=== PATIENT | male | born 1960 | race African-American/Black ===

== ENCOUNTER 2023-11-22 14:53 | Inpatient (IN) | payer BC ==
[2023-11-22 15:34] VITALS: BMI 22.2
[2023-11-22] MEDS ORDERED: hydrOXYzine PAMOATE 25 MG CAPSULE (FP) PO PRN (19:25)
[2023-11-22] MEDS ORDERED: MAGNESIUM HYDROX 2400MG/30ML ORAL SUSPENSION 30 ML CUP PO PRN (19:25)
[2023-11-22] MEDS ORDERED: BENZONATATE 200 MG CAPSULE PO PRN (19:25)
[2023-11-22] MEDS ORDERED: IBUPROFEN 600 MG TABLET (FP) PO PRN (19:25)
[2023-11-22] MEDS ORDERED: guaiFENesin 600 MG TABLET.ER (FP) PO PRN (19:25)
[2023-11-22] MEDS ORDERED: IBUPROFEN 400 MG TABLET (FP) PO PRN (19:25)
[2023-11-22] MEDS ORDERED: POLYETHYLENE GLYCOL (HEALTHYLAX) 3350 17 GM PACKET PO PRN (19:25)
[2023-11-22] MEDS ORDERED: LOPERAMIDE HCL 2 MG CAPSULE PO PRN (19:25)
[2023-11-22] MEDS ORDERED: ACETAMINOPHEN 325 MG TABLET (FP) PO PRN (19:25)
[2023-11-22] MEDS ORDERED: MAG HYDROX/AL HYDROX/SIMETH 30 ML UNIT-DOSE CUP PO PRN (19:25)
[2023-11-22] MEDS: MELATONIN 5 MG TABLETS PO SCH (21:17)
[2023-11-22] MEDS: THIAMINE HCL 100 MG TABLET (FP) PO SCH (21:17)
[2023-11-22] MEDS ORDERED: ASPIRIN 325 MG ENTERIC COATED TABLET (FP) PO SCH (22:00)
[2023-11-22] MEDS: ASPIRIN 325 MG ENTERIC COATED TABLET (FP) PO SCH (23:23)
[2023-11-22] MEDS ORDERED: TUBERCULIN PPD 5 TU/0.1ML SYRINGE (IN PATIENT USE ONLY) ID ONE (23:26)
[2023-11-23] MEDS ORDERED: TUBERCULIN PPD 5 TU/0.1ML VIAL ID ONE (06:23)
[2023-11-23] MEDS ORDERED: TUBERCULIN PPD 5 TU/0.1ML SYRINGE (IN PATIENT USE ONLY) ID ONE (07:00)
[2023-11-23] MEDS: PRENATAL VITAMINS W/ FOLIC ACID TABLET (FP) PO SCH (10:16)
[2023-11-23] MEDS: ASPIRIN 325 MG ENTERIC COATED TABLET (FP) PO SCH (10:17)
[2023-11-23 11:19] LABS: HEMATOCRIT 43.3 % (35.4-49); MCH 30.4 pg (25.7-33.7); MCHC 32.3 g/dl (32.0-35.9); MEAN PLT VOLUME 10.4 fl (7.5-11.1); PLATELET COUNT 123 10^3/uL (134-434); RDW 14.1 % (11.9-15.9); WHITE BLOOD COUNT 5.8 K/mm3 (4.0-10.0)
[2023-11-23 11:20] LABS: PH,URINE 8.5 (5.0-8.0); URINE APPEARANCE CLEAR; URINE BILIRUBIN NEGATIVE (NEGATIVE); URINE COLOR YELLOW; URINE GLUCOSE (UA) 3+ (NEGATIVE); URINE KETONE NEGATIVE (NEGATIVE); URINE LEUK ESTERASE NEGATIVE (NEGATIVE); URINE NITRITE NEGATIVE (NEGATIVE); URINE PROTEIN NEGATIVE (NEGATIVE)
[2023-11-23 11:35] LABS: CHLORIDE 111 mmol/L (98-107); POTASSIUM 4.5 mmol/L (3.5-5.1); SODIUM 142 mmol/L (136-145)
[2023-11-23 11:41] LABS: CALCIUM 8.7 mg/dL (8.5-10.1)
[2023-11-23 11:43] LABS: ALBUMIN 3.1 g/dl (3.4-5.0); ANION GAP 2 mmol/L (4-13); BLOOD UREA NITROGEN 18.6 mg/dL (7-18); CO2 29 mmol/L (21-32); GLUCOSE,RANDOM 108 mg/dL (74-106)
[2023-11-23 11:45] LABS: SGOT/AST 14 U/L (15-37); SGPT/ALT 20 U/L (13-61)
[2023-11-23 11:46] LABS: BILIRUBIN,TOTAL 0.2 mg/dL (0.2-1)
[2023-11-23 11:48] LABS: ALK PHOS 101 U/L (45-117)
[2023-11-23] MEDS: metFORMIN HCL 500 MG TABLET (FP) PO SCH (13:27)
[2023-11-23] MEDS: INSULIN ASPART SLIDING SCALE (NOVOLOG) 1 VIAL SQ SCH (16:45)
[2023-11-23] MEDS: THIAMINE HCL 100 MG TABLET (FP) PO SCH (21:40)
[2023-11-23] MEDS: MELATONIN 5 MG TABLETS PO SCH (21:40)
[2023-11-23] MEDS: ATORVASTATIN CA 40 MG TABLET (FP) PO SCH (21:40)
[2023-11-24] MEDS: metFORMIN HCL 500 MG TABLET (FP) PO SCH (06:40)
[2023-11-24] MEDS: INSULIN ASPART SLIDING SCALE (NOVOLOG) 1 VIAL SQ SCH ×2 (06:42→16:44)
[2023-11-24] MEDS: PRENATAL VITAMINS W/ FOLIC ACID TABLET (FP) PO SCH (10:04)
[2023-11-24] MEDS: ASPIRIN COATED 81 MG TABLET.EC PO SCH (10:05)
[2023-11-24] MEDS: ATORVASTATIN CA 40 MG TABLET (FP) PO SCH (21:50)
[2023-11-24] MEDS: MELATONIN 5 MG TABLETS PO SCH (21:50)
[2023-11-24] MEDS: DIVALPROEX NA *ER* EXTEND REL 500 MG TABLET.SA (FP) PO SCH (21:50)
[2023-11-24] MEDS: THIAMINE HCL 100 MG TABLET (FP) PO SCH (21:50)
[2023-11-25] MEDS: metFORMIN HCL 500 MG TABLET (FP) PO SCH (06:19)
[2023-11-25] MEDS: INSULIN ASPART SLIDING SCALE (NOVOLOG) 1 VIAL SQ SCH ×2 (06:30→16:29)
[2023-11-25] MEDS: ASPIRIN COATED 81 MG TABLET.EC PO SCH (10:11)
[2023-11-25] MEDS: PRENATAL VITAMINS W/ FOLIC ACID TABLET (FP) PO SCH (10:11)
[2023-11-25] MEDS: THIAMINE HCL 100 MG TABLET (FP) PO SCH (21:54)
[2023-11-25] MEDS: DIVALPROEX NA *ER* EXTEND REL 500 MG TABLET.SA (FP) PO SCH (21:54)
[2023-11-25] MEDS: ATORVASTATIN CA 40 MG TABLET (FP) PO SCH (21:54)
[2023-11-25] MEDS: MELATONIN 5 MG TABLETS PO SCH (21:54)
[2023-11-26] MEDS: metFORMIN HCL 500 MG TABLET (FP) PO SCH (06:39)
[2023-11-26] MEDS: INSULIN ASPART SLIDING SCALE (NOVOLOG) 1 VIAL SQ SCH ×2 (06:40→16:34)
[2023-11-26] MEDS: PRENATAL VITAMINS W/ FOLIC ACID TABLET (FP) PO SCH (10:00)
[2023-11-26] MEDS: ASPIRIN COATED 81 MG TABLET.EC PO SCH (10:00)
[2023-11-26] MEDS: DIVALPROEX NA *ER* EXTEND REL 500 MG TABLET.SA (FP) PO SCH (21:37)
[2023-11-26] MEDS: ATORVASTATIN CA 40 MG TABLET (FP) PO SCH (21:38)
[2023-11-26] MEDS: MELATONIN 5 MG TABLETS PO SCH (21:38)
[2023-11-26] MEDS: THIAMINE HCL 100 MG TABLET (FP) PO SCH (21:38)
[2023-11-27] MEDS: metFORMIN HCL 500 MG TABLET (FP) PO SCH (06:39)
[2023-11-27] MEDS: INSULIN ASPART SLIDING SCALE (NOVOLOG) 1 VIAL SQ SCH ×2 (07:16→16:43)
[2023-11-27] MEDS: ASPIRIN COATED 81 MG TABLET.EC PO SCH (10:06)
[2023-11-27] MEDS: PRENATAL VITAMINS W/ FOLIC ACID TABLET (FP) PO SCH (10:06)
[2023-11-27] MEDS: MELATONIN 5 MG TABLETS PO SCH (21:29)
[2023-11-27] MEDS: DIVALPROEX NA *ER* EXTEND REL 500 MG TABLET.SA (FP) PO SCH (21:29)
[2023-11-27] MEDS: THIAMINE HCL 100 MG TABLET (FP) PO SCH (21:29)
[2023-11-27] MEDS: ATORVASTATIN CA 40 MG TABLET (FP) PO SCH (21:30)
[2023-11-28] MEDS: metFORMIN HCL 500 MG TABLET (FP) PO SCH (06:05)
[2023-11-28] MEDS: INSULIN ASPART SLIDING SCALE (NOVOLOG) 1 VIAL SQ SCH ×2 (06:13→16:42)
[2023-11-28] MEDS: PRENATAL VITAMINS W/ FOLIC ACID TABLET (FP) PO SCH (10:00)
[2023-11-28] MEDS: ASPIRIN COATED 81 MG TABLET.EC PO SCH (10:01)
[2023-11-28] MEDS: DIVALPROEX NA *ER* EXTEND REL 500 MG TABLET.SA (FP) PO SCH (21:38)
[2023-11-28] MEDS: ATORVASTATIN CA 40 MG TABLET (FP) PO SCH (21:39)
[2023-11-28] MEDS: BENZOCAINE/MENTHOL (CHLORASEPTIC ) LOZENGE MM PRN (21:39)
[2023-11-28] MEDS: MELATONIN 5 MG TABLETS PO SCH (21:39)
[2023-11-28] MEDS: THIAMINE HCL 100 MG TABLET (FP) PO SCH (21:39)
[2023-11-29] MEDS: BENZOCAINE/MENTHOL (CHLORASEPTIC ) LOZENGE MM PRN (06:03)
[2023-11-29] MEDS: P-EPHED 60MG/TRIPROLIDI 2.5MG TABLET PO PRN ×3 (06:03→21:38)
[2023-11-29] MEDS: metFORMIN HCL 500 MG TABLET (FP) PO SCH (06:04)
[2023-11-29] MEDS: INSULIN ASPART SLIDING SCALE (NOVOLOG) 1 VIAL SQ SCH ×2 (06:04→17:03)
[2023-11-29] MEDS: PRENATAL VITAMINS W/ FOLIC ACID TABLET (FP) PO SCH (10:12)
[2023-11-29] MEDS: ASPIRIN COATED 81 MG TABLET.EC PO SCH (10:12)
[2023-11-29] MEDS: THIAMINE HCL 100 MG TABLET (FP) PO SCH (21:35)
[2023-11-29] MEDS: ATORVASTATIN CA 40 MG TABLET (FP) PO SCH (21:36)
[2023-11-29] MEDS: DIVALPROEX NA *ER* EXTEND REL 500 MG TABLET.SA (FP) PO SCH (21:36)
[2023-11-29] MEDS: MELATONIN 5 MG TABLETS PO SCH (21:36)
[2023-11-30] MEDS: metFORMIN HCL 500 MG TABLET (FP) PO SCH (06:02)
[2023-11-30] MEDS ORDERED: INSULIN (NOVOLOG) ASPART 100 UNITS/ML 10ML VIAL ONE (06:57)
[2023-11-30] MEDS: INSULIN ASPART SLIDING SCALE (NOVOLOG) 1 VIAL SQ SCH ×2 (07:35→17:30)
[2023-11-30] MEDS: ASPIRIN COATED 81 MG TABLET.EC PO SCH (10:16)
[2023-11-30] MEDS: PRENATAL VITAMINS W/ FOLIC ACID TABLET (FP) PO SCH (10:16)
[2023-11-30] MEDS ORDERED: BENZONATATE 200 MG CAPSULE PO PRN (12:47)
[2023-11-30] MEDS ORDERED: ACETAMINOPHEN 325 MG TABLET (FP) PO PRN (12:48)
[2023-11-30] MEDS: DIVALPROEX NA *ER* EXTEND REL 500 MG TABLET.SA (FP) PO SCH (21:56)
[2023-11-30] MEDS: ATORVASTATIN CA 40 MG TABLET (FP) PO SCH (21:56)
[2023-11-30] MEDS: THIAMINE HCL 100 MG TABLET (FP) PO SCH (21:56)
[2023-11-30] MEDS: MELATONIN 5 MG TABLETS PO SCH (21:57)
[2023-11-30] MEDS: guaiFENesin 600 MG TABLET.ER (FP) PO SCH (21:58)
[2023-12-01] MEDS: metFORMIN HCL 500 MG TABLET (FP) PO SCH (06:13)
[2023-12-01] MEDS: INSULIN ASPART SLIDING SCALE (NOVOLOG) 1 VIAL SQ SCH ×2 (06:42→17:08)
[2023-12-01] MEDS: PRENATAL VITAMINS W/ FOLIC ACID TABLET (FP) PO SCH (09:57)
[2023-12-01] MEDS: guaiFENesin 600 MG TABLET.ER (FP) PO SCH ×2 (09:57→22:02)
[2023-12-01] MEDS: ASPIRIN COATED 81 MG TABLET.EC PO SCH (09:57)
[2023-12-01] MEDS: THIAMINE HCL 100 MG TABLET (FP) PO SCH (22:02)
[2023-12-01] MEDS: ATORVASTATIN CA 40 MG TABLET (FP) PO SCH (22:02)
[2023-12-01] MEDS: MELATONIN 5 MG TABLETS PO SCH (22:02)
[2023-12-01] MEDS: DIVALPROEX NA *ER* EXTEND REL 500 MG TABLET.SA (FP) PO SCH (22:03)
[2023-12-02] MEDS: metFORMIN HCL 500 MG TABLET (FP) PO SCH (06:27)
[2023-12-02] MEDS: INSULIN ASPART SLIDING SCALE (NOVOLOG) 1 VIAL SQ SCH ×2 (07:30→17:12)
[2023-12-02] MEDS: guaiFENesin 600 MG TABLET.ER (FP) PO SCH ×2 (10:34→22:06)
[2023-12-02] MEDS: ASPIRIN COATED 81 MG TABLET.EC PO SCH (10:34)
[2023-12-02] MEDS: PRENATAL VITAMINS W/ FOLIC ACID TABLET (FP) PO SCH (10:34)
[2023-12-02] MEDS ORDERED: INSULIN (LEVEMIR) 100 UNITS/ML UNITS SQ ONE (22:00)
[2023-12-02] MEDS: DIVALPROEX NA *ER* EXTEND REL 500 MG TABLET.SA (FP) PO SCH (22:05)
[2023-12-02] MEDS: THIAMINE HCL 100 MG TABLET (FP) PO SCH (22:06)
[2023-12-02] MEDS: MELATONIN 5 MG TABLETS PO SCH (22:06)
[2023-12-02] MEDS: ATORVASTATIN CA 40 MG TABLET (FP) PO SCH (22:06)
[2023-12-03] MEDS: INSULIN ASPART SLIDING SCALE (NOVOLOG) 1 VIAL SQ SCH ×2 (06:32→07:10)
[2023-12-03] MEDS: metFORMIN HCL 500 MG TABLET (FP) PO SCH (06:33)
[2023-12-03 06:46] VITALS: RESP 18
[2023-12-03 09:36] VITALS: BP 158/89; PULSE 70; TEMP 97.2
[2023-12-03] MEDS: guaiFENesin 600 MG TABLET.ER (FP) PO SCH (09:47)
[2023-12-03] MEDS: ASPIRIN COATED 81 MG TABLET.EC PO SCH (09:47)
[2023-12-03] MEDS: PRENATAL VITAMINS W/ FOLIC ACID TABLET (FP) PO SCH (09:47)
== END 2023-12-03 10:09 | disposition home or self-care (01) | DRG 772 ==
LOC: YASAS 14:53 → Y5N 19:27
PROVIDERS: ADMIT Allergy & Immunology; ATTEND Psychiatry & Neurology Pain Medicine
PROC: HZ42ZZZ Group Counseling for Substance Abuse Treatment, Cognitive-Behavioral (ICD-10-PCS; principal; 2023-11-22)
DX: F10.20 Alcohol dependence, uncomplicated (principal); F14.20 Cocaine dependence, uncomplicated; F12.20 Cannabis dependence, uncomplicated; F20.9 Schizophrenia, unspecified; U07.1 COVID-19; E11.9 Type 2 diabetes mellitus without complications; Z79.84 Long term (current) use of oral hypoglycemic drugs; I11.0 Hypertensive heart disease with heart failure; I50.9 Heart failure, unspecified; Z95.5 Presence of coronary angioplasty implant and graft; Z62.810 Personal history of physical and sexual abuse in childhood; Z63.8 Other specified problems related to primary support group
CPT/HCPCS: 0241U-QW; 36415; 80053; 80307; 81003; 82962; 85027; 86780; 93005; 93010

== ENCOUNTER 2024-02-07 16:04 | Inpatient (IN) | payer BC ==
[2024-02-07 17:17] VITALS: BMI 23.0
[2024-02-07] MEDS ORDERED: POLYETHYLENE GLYCOL (HEALTHYLAX) 3350 17 GM PACKET PO PRN (18:42)
[2024-02-07] MEDS ORDERED: NALOXONE HCL (KLOXXADO) 8 MG SPRAY NS PRN (18:42)
[2024-02-07] MEDS ORDERED: ACETAMINOPHEN 325 MG TABLET (FP) PO PRN (18:42)
[2024-02-07] MEDS ORDERED: ONDANSETRON *ODT* 4 MG TABLET SL PRN (18:42)
[2024-02-07] MEDS ORDERED: BENZOCAINE/MENTHOL (CHLORASEPTIC ) LOZENGE MM PRN (18:42)
[2024-02-07] MEDS ORDERED: NALOXONE HCL 0.4 MG/ML VIAL IM PRN (18:42)
[2024-02-07] MEDS ORDERED: BENZONATATE 200 MG CAPSULE PO PRN (18:42)
[2024-02-07] MEDS ORDERED: MAGNESIUM HYDROX 2400MG/30ML ORAL SUSPENSION 30 ML CUP PO PRN (18:42)
[2024-02-07] MEDS ORDERED: hydrOXYzine PAMOATE 25 MG CAPSULE (FP) PO PRN (18:42)
[2024-02-07] MEDS ORDERED: IBUPROFEN 600 MG TABLET (FP) PO PRN (18:42)
[2024-02-07] MEDS ORDERED: METHOCARBAMOL 500 MG TABLET PO PRN (18:42)
[2024-02-07] MEDS ORDERED: guaiFENesin 600 MG TABLET.ER (FP) PO PRN (18:42)
[2024-02-07] MEDS ORDERED: IBUPROFEN 400 MG TABLET (FP) PO PRN (18:42)
[2024-02-07] MEDS: MAG HYDROX/AL HYDROX/SIMETH 30 ML UNIT-DOSE CUP PO PRN (20:21)
[2024-02-07] MEDS: THIAMINE HCL 100 MG TABLET (FP) PO SCH (22:46)
[2024-02-07] MEDS: MELATONIN 5 MG TABLETS PO SCH (22:46)
[2024-02-07] MEDS: BISMUTH SUBSALICYLATE 524 MG/30 ML PO PRN (23:14)
[2024-02-08] MEDS: metFORMIN HCL 500 MG TABLET (FP) PO SCH (06:21)
[2024-02-08] MEDS: PRENATAL VITAMINS W/ FOLIC ACID TABLET (FP) PO SCH (10:07)
[2024-02-08 11:48] LABS: HEMATOCRIT 43.8 % (35.4-49); HEMOGLOBIN 14.2 GM/dL (11.7-16.9); MCH 30.9 pg (25.7-33.7); MCHC 32.5 g/dl (32.0-35.9); MEAN CELL VOLUME 95.2 fl (80-96); MEAN PLT VOLUME 9.9 fl (7.5-11.1); PLATELET COUNT 148 10^3/uL (134-434); RDW 14.8 % (11.9-15.9); WHITE BLOOD COUNT 7.3 K/mm3 (4.0-10.0)
[2024-02-08 11:53] LABS: CHLORIDE 108 mmol/L (98-107); POTASSIUM 4.4 mmol/L (3.5-5.1); SODIUM 139 mmol/L (136-145)
[2024-02-08 12:03] LABS: CALCIUM 9.2 mg/dL (8.5-10.1); GLUCOSE,RANDOM 91 mg/dL (74-106)
[2024-02-08 12:04] LABS: ALBUMIN 3.2 g/dl (3.4-5.0); ANION GAP 2 mmol/L (4-13); BLOOD UREA NITROGEN 21.1 mg/dL (7-18); CO2 28 mmol/L (21-32); SGOT/AST 11 U/L (15-37); SGPT/ALT 14 U/L (13-61)
[2024-02-08 12:06] LABS: CREATININE 1.1 mg/dL (0.55-1.3); TOT PROT 6.8 g/dl (6.4-8.2)
[2024-02-08 12:07] LABS: ALK PHOS 101 U/L (45-117)
[2024-02-08 12:10] LABS: BILIRUBIN,TOTAL 0.6 mg/dL (0.2-1)
[2024-02-09] MEDS: LOPERAMIDE HCL 2 MG CAPSULE PO PRN (05:27)
[2024-02-09] MEDS: DICYCLOMINE HCL 10 MG CAPSULE PO PRN (05:27)
[2024-02-09] MEDS ORDERED: LORazepam 1 MG TABLET PO PRN (08:45)
[2024-02-09] MEDS: LORazepam 2 MG TABLET PO SCH (10:19)
[2024-02-10] MEDS: DIVALPROEX SODIUM 500 MG TABLET E.C. PO SCH (10:41)
[2024-02-10] MEDS: LACTULOSE 20 GM/30 ML UDC (FOR ORAL USE ONLY) PO SCH (14:55)
[2024-02-11] MEDS: LORazepam 1 MG TABLET PO SCH (05:13)
[2024-02-12] MEDS ORDERED: LORazepam 0.5 MG TABLET PO PRN
[2024-02-12] MEDS: LORazepam 0.5 MG TABLET PO SCH (05:20)
[2024-02-13] MEDS: LORazepam 0.5 MG TABLET PO ONE (05:39)
[2024-02-13 05:58] VITALS: RESP 16
[2024-02-13 09:14] VITALS: BP 126/73; PULSE 80; TEMP 96.9
== END 2024-02-13 12:35 | disposition other institution (70) | DRG 774 ==
LOC: YASAS 16:04 → Y6N 18:51 → Y3N 19:13
PROVIDERS: ADMIT Allergy & Immunology; ATTEND Surgery
PROC: HZ2ZZZZ Detoxification Services for Substance Abuse Treatment (ICD-10-PCS; principal; 2024-02-07)
DX: F10.230 Alcohol dependence with withdrawal, uncomplicated (principal); F14.20 Cocaine dependence, uncomplicated; F12.20 Cannabis dependence, uncomplicated; F17.210 Nicotine dependence, cigarettes, uncomplicated; F20.9 Schizophrenia, unspecified; E72.20 Disorder of urea cycle metabolism, unspecified; I11.0 Hypertensive heart disease with heart failure; I50.9 Heart failure, unspecified; E11.9 Type 2 diabetes mellitus without complications; Z79.84 Long term (current) use of oral hypoglycemic drugs; Z86.11 Personal history of tuberculosis
CPT/HCPCS: 36415; 80053; 80305; 80307; 82140; 82962; 82977; 85027; 86780; 93005; 93010

== ENCOUNTER 2024-02-13 13:20 | Inpatient (IN) | payer BC ==
[2024-02-13] MEDS ORDERED: AMMONIUM LACTATE 12% LOTION 225 GM BOTTLE TP PRN (14:18)
[2024-02-13] MEDS ORDERED: MAGNESIUM HYDROX 2400MG/30ML ORAL SUSPENSION 30 ML CUP PO PRN (14:18)
[2024-02-13] MEDS ORDERED: BENZONATATE 200 MG CAPSULE PO PRN (14:18)
[2024-02-13] MEDS ORDERED: NALOXONE (NYS OPIOID OVERDOSE PROGRAM) 4 MG/0.1 ML SPRAY NS PRN (14:18)
[2024-02-13] MEDS ORDERED: IBUPROFEN 600 MG TABLET (FP) PO PRN (14:18)
[2024-02-13] MEDS ORDERED: hydrOXYzine PAMOATE 25 MG CAPSULE (FP) PO PRN (14:18)
[2024-02-13] MEDS ORDERED: NICOTINE POLACRILEX 4 MG GUM BUC PRN (14:18)
[2024-02-13] MEDS ORDERED: POLYETHYLENE GLYCOL (HEALTHYLAX) 3350 17 GM PACKET PO PRN (14:18)
[2024-02-13] MEDS ORDERED: NICOTINE POLACRILEX 4 MG LOZENGE BC PRN (14:18)
[2024-02-13] MEDS ORDERED: IBUPROFEN 400 MG TABLET (FP) PO PRN (14:18)
[2024-02-13] MEDS ORDERED: ACETAMINOPHEN 325 MG TABLET (FP) PO PRN (14:18)
[2024-02-13] MEDS ORDERED: NALOXONE HCL 0.4 MG/ML VIAL IVPUSH PRN (14:18)
[2024-02-13] MEDS ORDERED: LOPERAMIDE HCL 2 MG CAPSULE PO PRN (14:18)
[2024-02-13] MEDS ORDERED: BENZOCAINE/MENTHOL (CHLORASEPTIC ) LOZENGE MM PRN (14:18)
[2024-02-13] MEDS ORDERED: guaiFENesin 600 MG TABLET.ER (FP) PO PRN (14:18)
[2024-02-13] MEDS: LACTULOSE 20 GM/30 ML UDC (FOR ORAL USE ONLY) PO SCH (15:05)
[2024-02-13] MEDS: MELATONIN 5 MG TABLETS PO SCH (21:11)
[2024-02-13] MEDS: THIAMINE 100 MG TABLET PO SCH (21:11)
[2024-02-14] MEDS: metFORMIN HCL 500 MG TABLET (FP) PO SCH ×2 (06:20→18:11)
[2024-02-14] MEDS: DIVALPROEX SODIUM 500 MG TABLET E.C. PO SCH (09:06)
[2024-02-14] MEDS: PRENATAL VITAMINS W/ FOLIC ACID TABLET (FP) PO SCH (09:07)
[2024-02-14] MEDS: SPIRONOLACTONE 25 MG TABLET PO SCH (13:56)
[2024-02-14] MEDS ORDERED: RIVAROXABAN 10 MG TABLET PO SCH (14:00)
[2024-02-14] MEDS: EMPAGLIFLOZIN (JARDIANCE) 10 MG TABLET PO SCH (15:00)
[2024-02-14] MEDS: CARVEDILOL 6.25 MG TABLET (FP) PO SCH (15:00)
[2024-02-14] MEDS: RIVAROXABAN 20 MG TABLET PO SCH (18:12)
[2024-02-14] MEDS: MAG HYDROX/AL HYDROX/SIMETH 30 ML UNIT-DOSE CUP PO PRN (18:12)
[2024-02-15] MEDS: METHOCARBAMOL 500 MG TABLET PO PRN (08:37)
[2024-02-15] MEDS: DIVALPROEX NA *ER* EXTEND REL 500 MG TABLET.SA (FP) PO SCH (21:12)
[2024-02-16] MEDS ORDERED: IBUPROFEN 600 MG TABLET (FP) PO PRN (14:34)
[2024-02-16] MEDS ORDERED: BENZOCAINE 20 % GEL TUBE MM PRN (16:13)
[2024-02-16] MEDS: AMOX TR/POT CLAV 500MG/125MG TABLETS (FP) PO SCH (18:52)
[2024-02-17] MEDS ORDERED: INSULIN (NOVOLOG) ASPART 100 UNITS/ML 10ML VIAL ONE (16:27)
[2024-02-25] MEDS: metFORMIN HCL 500 MG TABLET (FP) PO SCH ×2 (06:31→16:25)
[2024-02-26] MEDS ORDERED: metFORMIN HCL 500 MG TABLET (FP) PO SCH (07:00)
[2024-02-26 07:09] VITALS: RESP 18
[2024-02-27 08:06] VITALS: TEMP 97.7
[2024-02-27 09:20] VITALS: BP 142/85; PULSE 67
== END 2024-02-27 09:18 | disposition home or self-care (01) | DRG 772 ==
LOC: YASAS 13:20 → Y3E 13:22
PROVIDERS: ADMIT Allergy & Immunology; ATTEND Psychiatry & Neurology Pain Medicine
PROC: HZ42ZZZ Group Counseling for Substance Abuse Treatment, Cognitive-Behavioral (ICD-10-PCS; principal; 2024-02-13)
DX: F10.20 Alcohol dependence, uncomplicated (principal); F14.20 Cocaine dependence, uncomplicated; F17.210 Nicotine dependence, cigarettes, uncomplicated; F20.9 Schizophrenia, unspecified; I11.0 Hypertensive heart disease with heart failure; I50.9 Heart failure, unspecified; E78.5 Hyperlipidemia, unspecified; E11.9 Type 2 diabetes mellitus without complications; Z79.84 Long term (current) use of oral hypoglycemic drugs; M54.30 Sciatica, unspecified side; K08.89 Other specified disorders of teeth and supporting structures; K02.9 Dental caries, unspecified; Z86.11 Personal history of tuberculosis; Z99.89 Dependence on other enabling machines and devices
CPT/HCPCS: 71045-TC-FY; 82140; 82962

== ENCOUNTER 2024-09-25 11:17 | Inpatient (IN) | payer BC ==
[2024-09-25 11:36] VITALS: BMI 21.6
[2024-09-25] MEDS ORDERED: IBUPROFEN 400 MG TABLET (FP) PO PRN (12:30)
[2024-09-25] MEDS ORDERED: IBUPROFEN 600 MG TABLET (FP) PO PRN (12:30)
[2024-09-25] MEDS ORDERED: MAGNESIUM HYDROX 2400MG/30ML ORAL SUSPENSION 30 ML CUP PO PRN (12:30)
[2024-09-25] MEDS ORDERED: NALOXONE (NARCAN) HCL 4 MG/0.1 ML SPRAY NS PRN (12:30)
[2024-09-25] MEDS ORDERED: ACETAMINOPHEN 325 MG TABLET (FP) PO PRN (12:30)
[2024-09-25] MEDS ORDERED: BENZOCAINE/MENTHOL (CHLORASEPTIC ) LOZENGE MM PRN (12:30)
[2024-09-25] MEDS ORDERED: BENZONATATE 200 MG CAPSULE PO PRN (12:30)
[2024-09-25] MEDS ORDERED: guaiFENesin 600 MG TABLET.ER (FP) PO PRN (12:30)
[2024-09-25] MEDS ORDERED: POLYETHYLENE GLYCOL (HEALTHYLAX) 3350 17 GM PACKET PO PRN (12:30)
[2024-09-25] MEDS: metFORMIN HCL 500 MG TABLET (FP) PO SCH (17:30)
[2024-09-25 21:05] LABS: PH,URINE 7.5 (5.0-8.0); URINE APPEARANCE CLEAR; URINE BILIRUBIN NEGATIVE (NEGATIVE); URINE COLOR YELLOW; URINE GLUCOSE (UA) 3+ (NEGATIVE); URINE KETONE 1+ (NEGATIVE); URINE LEUK ESTERASE NEGATIVE (NEGATIVE); URINE NITRITE NEGATIVE (NEGATIVE); URINE PROTEIN NEGATIVE (NEGATIVE)
[2024-09-25] MEDS: ATORVASTATIN CA 80 MG TABLET (FP) PO SCH (21:49)
[2024-09-25] MEDS: DIVALPROEX SODIUM 500 MG TABLET E.C. PO SCH (21:50)
[2024-09-25] MEDS: THIAMINE 100 MG TABLET PO SCH (21:50)
[2024-09-25] MEDS: MELATONIN 5 MG TABLETS PO SCH (21:50)
[2024-09-26] MEDS: RIVAROXABAN 20 MG TABLET PO SCH (09:55)
[2024-09-26] MEDS: EMPAGLIFLOZIN (JARDIANCE) 10 MG TABLET PO SCH (09:55)
[2024-09-26] MEDS: PRENATAL VITAMINS W/ FOLIC ACID TABLET (FP) PO SCH (09:55)
[2024-09-26 12:27] LABS: HEMATOCRIT 38.6 % (35.4-49); HEMOGLOBIN 12.2 GM/dL (11.7-16.9); MCH 30.4 pg (25.7-33.7); MCHC 31.6 g/dl (32.0-35.9); MEAN CELL VOLUME 96.1 fl (80-96); MEAN PLT VOLUME 10.9 fl (7.5-11.1); PLATELET COUNT 108 10^3/uL (134-434); RBC 4.02 M/mm3 (4.00-5.60); RDW 14.8 % (11.9-15.9); WHITE BLOOD COUNT 6.1 K/mm3 (4.0-10.0)
[2024-09-26 12:36] LABS: POTASSIUM 4.4 mmol/L (3.5-5.1)
[2024-09-26 12:44] LABS: ALBUMIN 2.6 g/dl (3.4-5.0); BLOOD UREA NITROGEN 18.5 mg/dL (7-18)
[2024-09-26 12:46] LABS: BILIRUBIN,TOTAL 0.5 mg/dL (0.2-1); CALCIUM 8.9 mg/dL (8.5-10.1); TOT PROT 5.8 g/dl (6.4-8.2)
[2024-09-26 12:47] LABS: CREATININE 0.9 mg/dL (0.55-1.3)
[2024-09-26] MEDS ORDERED: ATORVASTATIN CA 40 MG TABLET (FP) ONE (20:21)
[2024-09-27] MEDS ORDERED: ATORVASTATIN CA 40 MG TABLET (FP) ONE (20:34)
[2024-09-28] MEDS ORDERED: ATORVASTATIN CA 40 MG TABLET (FP) ONE (19:40)
[2024-09-29] MEDS ORDERED: ATORVASTATIN CA 40 MG TABLET (FP) ONE (20:09)
[2024-09-30] MEDS ORDERED: ATORVASTATIN CA 40 MG TABLET (FP) ONE (21:34)
[2024-10-01] MEDS ORDERED: ATORVASTATIN CA 40 MG TABLET (FP) ONE (20:35)
[2024-10-01] MEDS: BENZTROPINE MESYLATE 1 MG TABLET PO SCH (21:44)
[2024-10-02] MEDS ORDERED: ATORVASTATIN CA 40 MG TABLET (FP) ONE (21:20)
[2024-10-03] MEDS: MAG HYDROX/AL HYDROX/SIMETH 30 ML UNIT-DOSE CUP PO PRN (19:09)
[2024-10-03] MEDS ORDERED: ATORVASTATIN CA 40 MG TABLET (FP) ONE (20:03)
[2024-10-05] MEDS: LOPERAMIDE HCL 2 MG CAPSULE PO PRN (01:41)
[2024-10-05 07:13] VITALS: BP 116/79; PULSE 95; RESP 16; TEMP 97.8
[2024-10-05] MEDS: NALOXONE (NYS OPIOID OVERDOSE PROGRAM) 4 MG/0.1 ML SPRAY NS SCH (11:45)
== END 2024-10-05 11:51 | disposition home or self-care (01) | DRG 772 ==
LOC: YASAS 11:17 → Y3NR 13:46 → Y5N 09-26 12:40
PROVIDERS: ADMIT Psychiatry & Neurology Pain Medicine; ATTEND Psychiatry & Neurology Pain Medicine
PROC: HZ42ZZZ Group Counseling for Substance Abuse Treatment, Cognitive-Behavioral (ICD-10-PCS; principal; 2024-09-25)
DX: F10.20 Alcohol dependence, uncomplicated (principal); F14.20 Cocaine dependence, uncomplicated; F20.9 Schizophrenia, unspecified; G24.09 Other drug induced dystonia; I10 Essential (primary) hypertension; E78.5 Hyperlipidemia, unspecified; E11.9 Type 2 diabetes mellitus without complications; Z79.84 Long term (current) use of oral hypoglycemic drugs; Z87.891 Personal history of nicotine dependence; Z62.810 Personal history of physical and sexual abuse in childhood; Z63.8 Other specified problems related to primary support group; Z86.718 Personal history of other venous thrombosis and embolism; Z79.01 Long term (current) use of anticoagulants; Z59.01 Sheltered homelessness; Z56.0 Unemployment, unspecified
CPT/HCPCS: 36415; 80053; 80164; 80305; 80307; 81003; 82962; 85027; 86780; 87811